=== PATIENT | female | born 1970 | race Caucasian/White ===

== ENCOUNTER → 2023-11-04 10:14 | Outpatient (REF) | payer MEDICARE, SELFPAY | LOC: HWRAD 10:14 | PROVIDERS: ATTENDING PHYSICIAN Family Medicine | DX: R10.9 Unspecified abdominal pain (principal) | CPT/HCPCS: 76700 ==

== ENCOUNTER → 2023-11-29 10:38 | Outpatient (REF) | payer MEDICARE, SELFPAY | LOC: RAD 10:38 | PROVIDERS: ATTENDING PHYSICIAN Nurse Practitioner Acute Care; FAMILY PHYSICIAN Family Medicine | DX: M43.16 Spondylolisthesis, lumbar region (principal) | CPT/HCPCS: 72082 ==

== ENCOUNTER → 2023-12-23 11:11 | Outpatient (REF) | payer MEDICARE, OTHER, SELFPAY | LOC: HWRAD 11:11 | PROVIDERS: ATTENDING PHYSICIAN Neurological Surgery; FAMILY PHYSICIAN Family Medicine | DX: M81.0 Age-related osteoporosis without current pathological fracture (principal) | CPT/HCPCS: 77080 ==

== ENCOUNTER → 2024-01-25 10:34 | Outpatient (REF) | payer MEDICARE, OTHER, SELFPAY | LOC: RAD 10:34 | PROVIDERS: ATTENDING PHYSICIAN Neurological Surgery; FAMILY PHYSICIAN Family Medicine | DX: Z98.1 Arthrodesis status (principal) | CPT/HCPCS: 72100 ==

== ENCOUNTER 2024-02-02 18:12 | Emergency (ER) | payer MEDICARE, OTHER, SELFPAY ==
[2024-02-02 18:18] VITALS: BP 147/91
[2024-02-02 19:57] LABS: % Basophils 0.6 % (0-2); % Eosinophils 1.2 % (0-6); % Immature Granulocytes 0.4 % (0-0.5); % Lymphocytes 14.9 % (20.5-51.1); % Neutrophils 77.9 % (42.2-75.2); Absolute Basophils 0.1 10^3/uL (0-0.2); Absolute Eosinophils 0.1 10^3/uL (0-0.7); Absolute Lymphocytes 1.5 10^3/uL (1.2-3.4); Absolute Monocytes 0.5 10^3/uL (0.1-0.6); Absolute Neutrophils 7.9 10^3/uL (1.4-6.5); Hematocrit 32.1 % (37.0-47.0); Hemoglobin 10.8 g/dL (12.0-16.0); Mean Corp Hgb Conc. 33.6 g/dL (33.0-37.0); Mean Corpuscular Hgb 26.6 pg (27.0-31.0); Mean Corpuscular Volume 79.1 fL (81.0-99.0); Mean Platelet Volume 9.5 fL (7.4-10.4); Nucleated Red Blood Cells % 0 %; Platelet Count 390 10^3/uL (130-400); Red Blood Cell Count 4.06 10^6/uL (4.20-5.40); White Blood Cell Count 10.2 10^3/uL (4.8-10.8)
[2024-02-02 19:58] LABS: Urine Albumin Negative (Neg - Trace); Urine Bilirubin Negative (Negative); Urine Character Clear (Clear); Urine Color Yellow; Urine Glucose Negative (Negative); Urine Ketone Negative (Negative); Urine Leukocyte 2+ (Negative); Urine Nitrite Negative (Negative); Urine Occult Blood Negative (Negative); Urine Urobilinogen Negative (Neg - 1+)
[2024-02-02 20:05] LABS: Urine Squamous Cell >30 /LPF (Few)
[2024-02-02 20:06] LABS: Urine Bacteria Few (Negative); Urine Red Blood Cell 0-2 /HPF (0-2)
--- NOTE | 2024-02-02 20:07 | ED.GENMED ---
History of Present Illness
General
Chief Complaint: Abdominal Symptoms
Source: patient
Exam Limitations: none
Time Seen by Provider: 02/02/24 19:05
Travel History
Have you had any contact with someone who has COVID-19?: No
Do you have any symptoms of coronavirus? Fever > 100 degrees, chills, cough, shortness of breath, sore throat, loss of taste or smell, muscle aches, or headache?: No
History of Present Illness
History of Present Illness:
This is a 53 year old female that comes in with c/o vomiting. States that she had Lumbar surgery 1 month ago. States that she started vomiting at 6am today. State that she did take 2-15mg Oxycodone last night as her pain was bad. States that her
pain has been getting worse. States that it goes down into her legs. States that she see's the surgeon next week but she has called them. States that she was told that it just takes time. States that she has had chills, nausea, vomiting, headache on
and off and dizziness. Denies any fever, chest pain, SOB, abd pain, diarrhea, urinary burning.
Past History
Past History
ED Past Medical History: GERD (Muniz's esophagus), HTN, NIDDM, Psychiatric (Anxiety, Depression), Other (Migraines, Muniz esophagus, Back pain, Hemorrhoids, Gastritis, Iron def anemia, ) and Other (Cervical disc disease, lumbar DJD, chronic back
pain, implanted spinal stimulator, follows with pain management, maintained on opioid medication.)
ED Past Surgical History: Appendectomy, Cholecystectomy and Orthopedic (Cervical laminectomy with fusion, implanted spinal stimulator (Removed), Right knee meniscus repair, Carpal tunnel X 2, Lumbar fusion, )
Social History
Tobacco: Non-smoker
Alcohol: Occasional
Drug: None
Personal: Single
Living: with family (daughter)
Employment: Disabled
Family History
Family History: CAD (Maternal grandfather with OR and 60s)
Review of Systems
Review of Systems
All Other Systems: ROS reviewed and negative except as documented in HPI and ROS
Constitutional: Reports chills; Denies fever
EENT: Reports no symptoms
Respiratory: Reports no symptoms; Denies cough or trouble breathing
Cardiac: Reports no symptoms; Denies chest pain
ABD/GI: Reports nausea and vomiting; Denies abdominal pain or diarrhea
: Reports no symptoms; Denies dysuria, frequency or urgency
Musculoskeletal: Reports back pain (Post surgery)
Skin: Reports no symptoms
Neurological: Reports dizzy and headache (on and off)
Psychiatric: Reports no symptoms
Phy Exam
General Physical Exam
General Presentation: mild distress
General age: appears stated age
General Skin: warm and dry
General Habitus: normal
General Mental: alert
General Hydration: appears well hydrated
ENT Exam
ENT Exam: TM's normal, pharynx normal and neck supple
Eye Exam
Eye Exam: EOMI
Cardiovascular Exam
Cardiovascular Exam: regular rate/rhythm, no edema, no murmur and normal peripheral pulses
Pulmonary Exam
Pulmonary Exam: lungs clear, no respiratory distress, no rales, chest non tender, no crackles, no rhonchi, no wheezing and no cough
Gastrointestinal Exam
Gastrointestinal Exam: normal bowel sounds, non tender, soft, no organomegaly, no pulsatile mass, non distended and other (Rectal tone normal)
Musculoskeletal Exam
Musculoskeletal Exam: full ROM, no edema and other (Push pulls equal and strong)
Skin Exam
Skin Exam: normal color, warm/dry, no rash, no petechia and other (Lumbar incision clean and dry. Negative or any redness )
Psychiatric Exam
Psychiatric Exam: normal mood/affect
Course
Orders/Labs/Results
Orders:
Orders
02/02/24 19:49
Complete Blood Count/With Diff Urgent
Comprehensive Metabolic Panel Urgent
Lipase Urgent
Urinalysis Reflex To Culture Urgent
Date Specimen was Collected: 02/02/24
Time Specimen was Collected: 19:43
Urine Microscopic Reflex Cult Urgent
Urine Culture Urgent
KIRILL Source: U
Specimen Description:
Date Specimen was Collected: 02/02/24
Time Specimen was Collected: 19:43
02/02/24 20:05
0.9% Sodium Chloride 1000 ml [Nss] 1,000 ml IV BOLUS
Ondansetron Injectable [Zofran] 4 mg IV NOW STA
02/02/24 20:09
Ketorolac [Toradol] 30 mg IV NOW STA
02/02/24 20:10
Acetaminophen 1000MG/100Ml [Ofirmev] 1,000 mg in 100 ml IV ONCE
Acetaminophen IV Indication:: ED Narcotic Naive Pt-ONCE
02/02/24 20:11
Pantoprazole [Protonix IV] 40 mg IV NOW STA
Abnormal Lab Results
02/02/24
19:49
RBC 4.06 L 10^6/uL
(4.20-5.40)
Hgb 10.8 L g/dL
(12.0-16.0)
Hct 32.1 L %
(37.0-47.0)
MCV 79.1 L fL
(81.0-99.0)
MCH 26.6 L pg
(27.0-31.0)
Absolute Neuts (auto) 7.9 H 10^3/uL
(1.4-6.5)
Neutrophils % 77.9 H %
(42.2-75.2)
Lymphocytes % 14.9 L %
(20.5-51.1)
Carbon Dioxide 21 L mmol/L
(22-30)
Glucose 124 H mg/dl
(70-99)
Calcium 10.7 H mg/dl
(8.4-10.2)
Leukocyte Esterase Rfl 2+ A
(Negative)
Urine Bacteria (Reflex) Few A
(Negative)
02/02/24 19:49
02/02/24 19:49
H/H slightly low. Anemia,
Vital Signs
Initial and Last Documented VS:
Initial Vital Signs
Temp Pulse Resp BP Pulse Ox
98.9 F 96 18 147/91 99
02/02/24 18:18 02/02/24 18:18 02/02/24 18:18 02/02/24 18:18 02/02/24 18:18
Last Documented Vital Signs
Temp Pulse Resp BP Pulse Ox
98.9 F 96 18 147/91 99
02/02/24 18:18 02/02/24 18:18 02/02/24 18:18 02/02/24 18:18 02/02/24 18:18
MDM/Problems Addressed
Differential Diagnosis Includes:
Post surgical back pain.
MDM/Problems Addressed:
This is a 53 year old female that comes in with c/o vomiting. States that she has back surgery a month ago and today at 6am she started with vomiting. States that she feels her back pain is getting worse and her legs hurt.
Will get labs, give IV fluids and pain medication with antiemetics.
Back into see patient. States that she is feeling better and is ready to go home. Will give patient a prescription for Zofran. Encouraged patient to try using Tylenol 1000mg every 6 hours and alternating this with Ibuprofen 600mg every 6 hours with
food. Patient can also use her Oxycodone for pain. Follow up with the Surgeon. Return with any concerns.
Chronic conditions affecting care:
Back surgery
Acute Exacerbation and/or Progression of Chronic Illness:
Back surgery
*Pulse Oximetry
Patient hypoxic: no
*EKG
Interpreted by ED Provider?: NA
Rate: EKG- N/A
*Tile Roofer Interpretation
Rate: Tile Roofer- N/A
*Critical Care Note
Total Time (30-74mins, 75-104mins- exclusive of procedures): Not Applicable
ED Attending Note
-
Portions of this chart may have been created with voice recognition software.� Occasional wrong word or��sound alike� substitutions may have occurred due to the inherent limitations of voice recognition software.
Discharge Plan
Departure
Patient Disposition: Home (Routine Discharge)
Date of Disposition: 02/02/24
Time of Disposition: 22:24
Patient with high blood pressure during this ER visit?: Yes
Condition: Good
Covid-19: Not Applicable
Discharge Problem:
Nausea & vomiting
Instructions: Nausea and Vomiting, Adult (DC), BLOOD PRESSURE
Prescriptions:
New
ondansetron 4 mg tablet,disintegrating
4 mg PO Q8H PRN (Reason: nausea and vomiting) Qty: 7 0RF
No Action
metformin 500 MG tablet
1,000 mg PO BID
fenofibrate [Fenoglide] 40 MG tablet
40 mg PO DAILY
Patient Comments:
check dose with patient.
amoxicillin-pot clavulanate 875-125 mg tablet
1 tab PO BID Qty: 14 0RF
oxycodone 15 mg Tablet, Oral Only
15 mg PO Q6H PRN (Reason: pain)
Referrals:
Jayla Menendez PA [Family Provider] -
Activity Restrictions/Additional Instructions:
As discussed, your blood work shows your chronic anemia. Your Urine is negative for infection. You have had a prescription for Zofran sent to your Pharmacy. This will help with any nausea, vomiting. You may use Tylenol 1000mg every 6 hours for pain
and Ibuprofen 600mg every 6 hours with food and alternate them. So if you take Tylenol at 9am the Ibuprofen would be due at 12 noon and then Tylenol at 3pm and Ibuprofen at 6pm. You may also use your Oxycodone as needed for pain. Please call the
surgeon tomorrow for further evaluation. IF YOU HAVE ANY FEVER, UNABLE TO KEEP ANY FOOD OR WATER DOWN OR YOU HAVE ANY OTHER CONCERNS PLEASE RETURN TO THE EMERGENCY ROOM.
Interventions
Interventions:
*Risk Screen - Suicide Last Done: 02/02/24 18:18
*General Assessment Last Done: 02/02/24 18:18
*Neglect/Abuse Screening Last Done: 02/02/24 18:18
ED- Fall Risk Assessment Last Done: 02/02/24 21:05
*ED COVID-19 Vaccine History Last Done: 02/02/24 21:05
NO-Yqxsls-Jdmyycdfuy Assessment Last Done: 02/02/24 19:45
Discharge Date and Time
Print Language: KOREAN
[2024-02-02 20:13] LABS: ALT (SGPT) 21 U/L (0-35); AST (SGOT) 27 U/L (14-36); Albumin 4.8 g/dl (3.5-5.0); Alkaline Phosphatase 57 U/L (38-126); Blood Urea Nitrogen 15 mg/dl (7-17); Calcium 10.7 mg/dl (8.4-10.2); Carbon Dioxide 21 mmol/L (22-30); Chloride 102 mmol/L (98-107); Glucose 124 mg/dl (70-99); Lipase 88 U/L (23-300); Sodium 137 mmol/L (135-145); Total Bilirubin 0.8 mg/dl (0.2-1.3); Total Protein 7.5 g/dl (6.3-8.2); eGFR > 60.00
[2024-02-02] MEDS: ZOFRAN 4 MG IV (20:15)
[2024-02-02] MEDS: NSS 1000 IV (20:15)
[2024-02-02] MEDS: PROTONIX IV 40 MG IV (20:16)
[2024-02-02] MEDS: TORADOL 30 MG IV (20:16)
[2024-02-02 22:37] VITALS: BP 136/73
== END 2024-02-02 22:38 | disposition home or self-care (01) ==
LOC: EMR 18:12
PROVIDERS: Clinical Nurse Specialist Family Health; EMERGENCY PHYSICIAN Emergency Medicine; FAMILY PHYSICIAN Family Medicine
DX: R11.2 Nausea with vomiting, unspecified (principal); R42 Dizziness and giddiness; R51.9 Headache, unspecified; R68.83 Chills (without fever); I10 Essential (primary) hypertension; E11.9 Type 2 diabetes mellitus without complications; K21.9 Gastro-esophageal reflux disease without esophagitis; K22.70 Barrett's esophagus without dysplasia; F32.A Depression, unspecified; F41.9 Anxiety disorder, unspecified; M54.9 Dorsalgia, unspecified; D50.9 Iron deficiency anemia, unspecified; M50.90 Cervical disc disorder, unspecified, unspecified cervical region; M47.816 Spondylosis without myelopathy or radiculopathy, lumbar region; G89.29 Other chronic pain; Z98.890 Other specified postprocedural states; Z90.49 Acquired absence of other specified parts of digestive tract; Z98.1 Arthrodesis status; Z79.891 Long term (current) use of opiate analgesic; Z79.84 Long term (current) use of oral hypoglycemic drugs; Z88.5 Allergy status to narcotic agent; Z88.8 Allergy status to other drugs, medicaments and biological substances; Z91.040 Latex allergy status
CPT/HCPCS: 99284; 96374; 96375 ×2; 96361; 80053; 81003; 81015; 83690; 85025; 87086

== ENCOUNTER 2025-04-04 03:59 | Emergency (ER) | payer OTHER, SELFPAY ==
[2025-04-04 04:02] VITALS: BP 129/77
--- NOTE | 2025-04-04 04:09 | ED.GENMED ---
History of Present Illness
General
Chief Complaint: Back Pain
Source: patient
Exam Limitations: none
Time Seen by Provider: 04/04/25 04:08
Nursing documentation reviewed up to this point in time: agreed with
History of Present Illness
History of Present Illness:
This is a 55-year-old female with a past medical history of GERD Bryan's esophagus, chronic neck and back pain status post spinal fusion, chronic gastritis, hypertension, anxiety, depression, who presents to the emergency department today with
concerns of left shoulder pain and back pain as well as chest discomfort and upper abdominal discomfort x 3 days. The chest discomfort comes and goes and is accompanied by epigastric pain. She has bryan's esophagus and it feels similar to reflux
symptoms. Patient is concerned because her chronic back pain is starting to radiate to the left shoulder 3 days ago and she read online that that could indicate a heart attack. She has no known hx of CAD. She has a family hx of coronary disease and
as such she follows up with a inspector [employer] every 2 years. She previously underwent cardiac catheterization which was unremarkable. She has known history of degenerative disc disease and has had multiple spinal surgeries and follows with a pain
configuration management administrator. She takes daily oxycodone extended release and shorter acting oxycodone as needed. She denies any injury to the shoulder, denies any recent falls, no nausea or vomiting, no fevers or chills, recent long distance travel,
swelling or pain in her lower extremities, palpitations, dark tarry stools, rectal bleeding.
Past History
Past History
ED Past Medical History: GERD (Bryan's esophagus), HTN, NIDDM, Psychiatric (Anxiety, Depression), Other (Migraines, Bryan esophagus, Back pain, Hemorrhoids, Gastritis, Iron def anemia, ) and Other (Cervical disc disease, lumbar DJD, chronic back
pain, implanted spinal stimulator, follows with pain management, maintained on opioid medication.)
ED Past Surgical History: Appendectomy, Cholecystectomy and Orthopedic (Cervical laminectomy with fusion, implanted spinal stimulator (Removed), Right knee meniscus repair, Carpal tunnel X 2, Lumbar fusion, )
Social History
Tobacco: Non-smoker
Alcohol: Occasional
Drug: None
Personal: Single
Living: with family (daughter)
Employment: Disabled
Family History
Family History: CAD (Maternal grandfather with NE and 60s)
Review of Systems
Review of Systems
All Other Systems: ROS reviewed and negative except as documented in HPI and ROS
Phy Exam
Physical Exam
Physical Exam:
General: Patient is well appearing and in no acute distress; non-toxic
Skin: Warm and dry, no rashes or lesions
Head: Normocephalic, atraumatic
Eyes: Sclera non-icteric. EOMs intact.
Cardiac: Regular rate and rhythm, no murmurs
Peripheral Vascular: No lower extremity swelling or edema; 2+ radial pulses bilaterally
Pulm: Normal respiratory effort, no wheezes, rales, or rhonchi
Abdomen: Mild epigastric abdominal tenderness to palpation
Musculoskeletal: Pain with external rotation and abduction of the right shoulder with tenderness to palpation over the left shoulder blade
Neuro: CN II-XII intact, no focal neurologic deficits.
Psychiatric: Appropriate mood and affect.
Scores
PE Wells Score
Symptoms of DVT: No
No alternative diagnosis better explains the illness: No
Tachycardia with pulse > 100: No
Immobilization (>=3 days) or surgery within previous 4 weeks: No
Prior history of DVT or pulmonary embolism: No
Presence of hemoptysis: No
Presence of malignancy: No
Pulmonary Embolism Risk Score: 0
Probability of PE: Pt is low risk
Course
Orders/Labs/Results
Orders:
Orders
04/04/25 04:22
0.9% Sodium Chloride 500 ml [Nss] 500 ml IV BOLUS
Mag Hydrox/Al Hydrox/Simeth [Maalox] 30 ml Phenobarb/Hyoscy/Atropine/Scop [] 10 ml Viscous Lidocaine 2% [Xylocaine Viscous Cup] 10 ml PO NOW
Ondansetron Injectable [Zofran] 4 mg IV NOW STA
04/04/25 04:23
CR Chest - 2 Views Urgent
Comment:
Reason For Exam: chest pain, left shoulder pain
04/04/25 04:24
Morphine Sulfate 2 mg IV NOW STA
04/04/25 04:34
Complete Blood Count/With Diff Urgent
Comprehensive Metabolic Panel Urgent
Lipase Urgent
Troponin I Urgent
04/04/25 04:36
Mag Hydrox/Al Hydrox/Simeth [Maalox] 30 ml .ROUTE .STK-MED ONE
Phenobarb/Hyoscy/Atropine/Scop [] 10 ml .ROUTE .STK-MED ONE
Viscous Lidocaine 2% [Xylocaine Viscous Cup] 15 ml .ROUTE .STK-MED ONE
04/04/25 05:03
Electrocardiogram (*1) Urgent
Reason for Study: Chest Pain
04/04/25 05:28
Vital Signs- Treatment ONCE
Frequency: Once
Baclofen [Lioresal] 10 mg PO NOW STA
Ketorolac [Toradol] 15 mg IV NOW STA
Lidocaine [Lidocaine 4% Patch] 1 patch TOPICAL DAILY ONE
Apply Lidocaine patch(s) to:: left shoulder blade
Abnormal Lab Results
04/04/25
04:34
Hgb 11.7 L g/dL
(12.0-16.0)
Hct 34.7 L %
(37.0-47.0)
Plt Count 404 H 10^3/uL
(130-400)
Abs Immat Gran (auto) 0.1 H 10^3/uL
(0-0.05)
Immature Gran % 0.8 H %
(0-0.5)
Glucose 158 H mg/dl
(70-99)
Calcium 10.6 H mg/dl
(8.4-10.2)
AST 40 H U/L
(14-36)
ALT 41 H U/L
(0-35)
04/04/25 04:34
04/04/25 04:34
Vital Signs
Initial and Last Documented VS:
Initial Vital Signs
Temp Pulse Resp BP Pulse Ox
98.3 F 81 18 129/77 100
04/04/25 04:02 04/04/25 04:02 04/04/25 04:02 04/04/25 04:02 04/04/25 04:02
Last Documented Vital Signs
Temp Pulse Resp BP Pulse Ox
98.3 F 76 20 125/69 97
04/04/25 04:02 04/04/25 06:00 04/04/25 06:00 04/04/25 05:44 04/04/25 06:00
MDM/Problems Addressed
Differential Diagnosis Includes:
ddx include musculoskeletal sprain/strain, chronic back pain/DJD, ACS, gastritis/GERD
MDM/Problems Addressed:
55 y/o female with a pmh of chronic back pain on chronic narcotics, Bryan's esophagus, presents to the ER today with concerns of 3 days of atypical chest pain and abdominal discomfort. She has also had an exacerbation of her chronic back pain and
notes that she is now feeling it over her left shoulder blade.
On exam, her shoulder pain is illicited with external rotation and palpation.
Patient is in chronic pain and states that she still has moderate pain but the dose of morphine, toradol, lidocaine patch, made the pain tolerable.
She is searching for a new pain management doctor and is looking for a doctor who can insert an intrathecal pain pump.
Patient had recent myocardial perfusion study on 10/07/24 due to atypical chest pain which showed:
Normal myocardial perfusion imaging.
Stress Risk is low risk study, but the patient may be at moderate risk (risk of 1 - 3% NE or /year) due to pharmacologic agent used.
Systolic function is normal. The ejection fraction is greater than 75%
Thoracic spine CT 05/13/22: disc herniation and degenerative disc disease
Today, her ecg shows normal sinus rhythm with no ischemic changes. Her troponin is undetectable. CXR unremarkable. Her chest and epigastric discomfort completely resolved with GI cocktail, suspect GERD exacerbation. Will place on PPI trial. She
states that she currently does not follow up with a GI doctor. New referral provided. Advised follow up with GI and cards, pcp. Suspect her shoulder pain today is musculoskeletal as she is tender to palpation and it is brought on with movement.
Patient requested lidocaine patches to go home with. Patient requesting morphine prescription because she states that her oxycodone have not been working well recently. Discussed that patient will need to follow up with pain management, no new
narcotic script given. Patient expressed understanding. Patient stable for discharge.
*Pulse Oximetry
SaO2: 100
Oxygen Mode of Delivery: Room air
Patient hypoxic: no
*Critical Care Note
Total Time (30-74mins, 75-104mins- exclusive of procedures): Not Applicable
Update Note
Update Note:
5: 31 am--Patient notes complete resolution of her upper abdominal pain and chest pain after GI cocktail. Suspect GERD/gastritis. Patient reports that her left shoulder blade pain persist and back pain. CXR unremarkable no evidence of widened
mediastinum. She reports that the morphine did not help. Patient is on chronic opioid medication has a higher pain tolerance. Will trial dose of Toradol, lidocaine patch and baclofen and reassess.
6:17 AM�patient is able to ambulate to the bathroom without acute discomfort. She reports that the combination of medications have taken the edge off her pain. Patient is requesting a prescription for lidocaine patches.
6:34 AM-- Patient ready for discharge. Patient did receive a 2 mg dose of morphine at 4:25 am typically will keep patients for 4 hours after dose however patient states that she is ready to go home. I think this is reasonable as patient is a chronic
narcotic user and takes multiple doses of short acting oxycodone and long acting oxycodone everyday for multiple years and follows with pain management and currently patient is awake and alert, oriented and I do feel she is stable for drive home to
[place]. She denies dizziness, sleepiness, drowsiness.
ED Attending Note
-
Portions of this chart may have been created with voice recognition software.� Occasional wrong word or��sound alike� substitutions may have occurred due to the inherent limitations of voice recognition software.
Discharge Plan
Departure
Patient Disposition: Home (Routine Discharge)
Date of Disposition: 04/04/25
Time of Disposition: 06:34
Patient with high blood pressure during this ER visit?: No
Condition: Good
Discharge Problem:
GERD (gastroesophageal reflux disease), Chronic mid back pain
Instructions: Upper Back Pain (DC), Acid reflux and GERD in adults, BLOOD PRESSURE
Prescriptions:
New
lidocaine 5 % adhesive patch,medicated
1 patch topical DAILY Qty: 30 0RF
No Action
metformin 500 MG tablet
500 mg PO BID
losartan 50 mg Tablet
50 mg PO DAILY
dicyclomine 20 mg Tablet
20 mg PO BID
pregabalin 150 mg Capsule
150 mg PO TID
Xtampza ER 9 mg Cap,Sprinkl,Er12hr(Dont Crush)
9 mg PO Q12H
fenofibrate
145 mg PO DAILY
Referrals:
Rufina Martinez MD [Non-Admitting Privileges, Anesthesiology] - Call in 1-3 days for appt
Cindy Darden MD [Active, Gastroenterology] - Call in 1-3 days for appt
Jayla Menendez PA [Family Provider, Family Practice]
Activity Restrictions/Additional Instructions:
You can merchandise pickup/receiving associate Maalox [id number] to help with your acute GERD symptoms as needed.
Pantoprazole been sent to your pharmacy. Please take 1 tablet once daily for a 2-week trial.
Lidocaine patches have been sent to your pharmacy. You can apply 1 patch or the effected area once daily. Please remove after 12 hours.

[facility]
[phone]
Dr. Martinez
[facility], [facility]

Your blood work is unremarkable. Please follow-up with your primary care provider. Please call the attached number to schedule appointment to see gastroenterology.
PLEASE RETURN EMERGENCY DEPARTMENT SHOULD YOU DEVELOP CHEST PAIN, SHORTNESS OF BREATH, VOMITING BLOOD, RECTAL BLEEDING, DARK TARRY STOOLS, INTRACTABLE NAUSEA OR VOMITING, FAINTING SPELLS, PALPITATIONS, LIGHTHEADEDNESS, DIZZINESS, OR ANY OTHER SIGNS
OR SYMPTOMS WORRISOME TO YOU.
Interventions
Interventions:
*Risk Screen - Suicide Last Done: 04/04/25 04:02
*General Assessment Last Done: 04/04/25 04:02
*Neglect/Abuse Screening Last Done: 04/04/25 04:02
*ED- Fall Risk Assessment Last Done: 04/04/25 06:09
*ED COVID-19 Vaccine History Last Done: 04/04/25 06:09
*Nursing Disposition Last Done: 04/04/25 06:30
ED-Musculoskeletal Assessment Last Done: 04/04/25 04:35
Discharge Date and Time
Discharge Date/Time: 04/04/25 06:30
Print Language: FRENCH
[2025-04-04 04:24] VITALS: BMI 35.7
[2025-04-04] MEDS: ZOFRAN 4 MG IV (04:38)
[2025-04-04] MEDS: MORPHINE SULFATE 2 MG IV (04:38)
[2025-04-04] MEDS: MAALOX 50 PO (04:38)
[2025-04-04] MEDS: NSS 500 IV (04:39)
[2025-04-04 04:49] LABS: Hematocrit 34.7 % (37.0-47.0); Hemoglobin 11.7 g/dL (12.0-16.0); Mean Corp Hgb Conc. 33.7 g/dL (33.0-37.0); Mean Corpuscular Volume 82.6 fL (81.0-99.0); Nucleated Red Blood Cells % 0 %; Platelet Count 404 10^3/uL (130-400); Red Cell Dist. Width 13.2 % (11.5-14.5)
[2025-04-04 05:15] LABS: ALT (SGPT) 41 U/L (0-35); AST (SGOT) 40 U/L (14-36); Albumin 4.8 g/dl (3.5-5.0); Alkaline Phosphatase 39 U/L (38-126); Blood Urea Nitrogen 13 mg/dl (7-17); Calcium 10.6 mg/dl (8.4-10.2); Carbon Dioxide 24 mmol/L (22-30); Chloride 105 mmol/L (98-107); Estimated Creatinine Clearance 92 ml/min; Glucose 158 mg/dl (70-99); Lipase 49 U/L (23-300); Potassium 4.4 mmol/L (3.5-5.1); Sodium 137 mmol/L (135-145); Total Protein 7.6 g/dl (6.3-8.2); eGFR > 60.00
[2025-04-04 05:27] LABS: Troponin I < 0.012 ng/ml
[2025-04-04 05:44] VITALS: BP 125/69
[2025-04-04] MEDS: LIDOCAINE 4% PATCH 1 PATCH TOPICAL (05:44)
[2025-04-04] MEDS: LIORESAL 10 MG PO (05:46)
[2025-04-04] MEDS: TORADOL 15 MG IV (05:46)
== END 2025-04-04 06:30 | disposition home or self-care (01) ==
LOC: EMR 03:59
PROVIDERS: Physician Assistant; EMERGENCY PHYSICIAN Emergency Medicine; FAMILY PHYSICIAN Family Medicine
DX: K21.9 Gastro-esophageal reflux disease without esophagitis (principal); M54.6 Pain in thoracic spine; M54.2 Cervicalgia; M25.512 Pain in left shoulder; R07.89 Other chest pain; I10 Essential (primary) hypertension; M51.35 Other intervertebral disc degeneration, thoracolumbar region; G43.909 Migraine, unspecified, not intractable, without status migrainosus; K22.70 Barrett's esophagus without dysplasia; E11.9 Type 2 diabetes mellitus without complications; M50.90 Cervical disc disorder, unspecified, unspecified cervical region; M47.816 Spondylosis without myelopathy or radiculopathy, lumbar region; F41.9 Anxiety disorder, unspecified; F32.A Depression, unspecified; D50.9 Iron deficiency anemia, unspecified; G89.29 Other chronic pain; Z79.891 Long term (current) use of opiate analgesic; Z82.49 Family history of ischemic heart disease and other diseases of the circulatory system; Z90.49 Acquired absence of other specified parts of digestive tract; Z98.1 Arthrodesis status; Z88.5 Allergy status to narcotic agent; Z88.8 Allergy status to other drugs, medicaments and biological substances; Z91.040 Latex allergy status
CPT/HCPCS: 99284; 96374; 96375 ×2; 96361 ×2; 71046; 80053; 83690; 84484; 85025; 93005

== ENCOUNTER 2025-07-19 10:36 | Outpatient (RCR) | payer OTHER, SELFPAY | END 2025-07-19 23:59 | disposition home or self-care (01) | LOC: RPT 10:36 | DX: M54.16 Radiculopathy, lumbar region (principal); M96.1 Postlaminectomy syndrome, not elsewhere classified; Z73.6 Limitation of activities due to disability; M43.22 Fusion of spine, cervical region; Z98.1 Arthrodesis status; R29.6 Repeated falls | CPT/HCPCS: 97112; 97163 ==

== ENCOUNTER 2025-09-09 12:54 | Emergency (ER) | payer OTHER, SELFPAY ==
[2025-09-09] VITALS (7 sets, daily range): BP systolic 116–161; BP diastolic 55–86; BMI 33.5
[2025-09-09 14:27] LABS: COVID-19 Antigen Negative (Negative)
--- NOTE | 2025-09-09 16:25 | ED.GENMED ---
History of Present Illness
General
Chief Complaint: Abdominal Symptoms
Source: patient
Exam Limitations: none
Time Seen by Provider: 09/09/25 16:24
Nursing documentation reviewed up to this point in time: agreed with
History of Present Illness
History of Present Illness:
Patient to the emergency department with complaint of nausea and vomiting which started this morning. States she has had a cough for the last 3 days. She denies any fever or chills. Brought self to the emergency department for evaluation. She is
currently treating for chronic pain. Takes oxycodone for her pain. She states that her dose is being weaned in preparation for pain pump. Unable to take her pain medication today due to the nausea and vomiting.
Past History
Past History
ED Past Medical History: GERD (Muniz's esophagus), HTN, NIDDM, Psychiatric (Anxiety, Depression), Other (Migraines, Muniz esophagus, Back pain, Hemorrhoids, Gastritis, Iron def anemia, ) and Other (Cervical disc disease, lumbar DJD, chronic back
pain, implanted spinal stimulator, follows with pain management, maintained on opioid medication.)
ED Past Surgical History: Appendectomy, Cholecystectomy and Orthopedic (Cervical laminectomy with fusion, implanted spinal stimulator (Removed), Right knee meniscus repair, Carpal tunnel X 2, Lumbar fusion, )
Social History
Tobacco: Non-smoker
Alcohol: Occasional
Drug: None
Personal: Single
Living: with family (daughter)
Employment: Disabled
Family History
Family History: CAD (Maternal grandfather with LA and 60s)
Review of Systems
Review of Systems
Allergies reviewed?: Yes
All Other Systems: ROS reviewed and negative except as documented in HPI and ROS
Constitutional: Reports no symptoms
EENT: Reports no symptoms
Respiratory: Reports cough
Cardiac: Reports no symptoms
ABD/GI: Reports nausea and vomiting
: Reports no symptoms
Musculoskeletal: Reports no symptoms
Skin: Reports no symptoms
Neurological: Reports weakness
Psychiatric: Reports no symptoms
Phy Exam
General Physical Exam
General Presentation: moderate distress
General age: appears stated age
General Skin: warm and dry
General Habitus: normal
General Mental: alert
Cardiovascular Exam
Cardiovascular Exam: regular rate/rhythm and no edema
Pulmonary Exam
Pulmonary Exam: lungs clear and no respiratory distress
Gastrointestinal Exam
Gastrointestinal Exam: normal bowel sounds, soft, no organomegaly, no pulsatile mass and non distended
Palpation: generalized: Moderate tenderness
Musculoskeletal Exam
Musculoskeletal Exam: full ROM and neuro vasc intact
Skin Exam
Skin Exam: normal color, warm/dry and no rash
Psychiatric Exam
Psychiatric Exam: normal mood/affect
Sepsis
Sepsis Screening
Sepsis Assessment: Sepsis Ruled Out
Sepsis Screen
Sepsis Screen: Sepsis Ruled Out
Date: 09/12/25
Time: 18:23
Course
Orders/Labs/Results
Orders:
Orders
09/09/25 13:09
Electrocardiogram (*1) Urgent
Reason for Study: Other
Other Reason for Exam: Possible Sepsis
EKG- Treatment ONCE
09/09/25 13:31
COVID-19 Antigen Urgent
Source: Nasal Swab
Blood Culture Q20M
[facility] Source: Blood/Venous
Specimen Description:
Comment: Urgent from separate sites. If patient screens positive for possible sepsis
Influenza A+B Rapid Molecular Urgent
[facility] Source: Nasal Swab
Specimen Description:
09/09/25 16:31
CR Chest - 2 Views Urgent
Comment:
Reason For Exam: fever, cough
09/09/25 16:54
Complete Blood Count/With Diff Urgent
Comprehensive Metabolic Panel Urgent
Lactic Acid Q4H
Comment: ON ICE, CANCEL 2ND ORDER IF FIRST LACTIC ACID LEVEL <2
Lipase Urgent
Comment: ADD ON
Blood Culture Q20M
[facility] Source: Blood/Venous
Specimen Description:
Comment: Urgent from separate sites. If patient screens positive for possible sepsis
09/09/25 16:57
0.9% Sodium Chloride 1000 ml [Nss] 1,000 ml IV BOLUS
09/09/25 16:58
Acetaminophen [Tylenol] 1,000 mg .ROUTE .STK-MED ONE
09/09/25 16:59
Acetaminophen [Tylenol] 1,000 mg PO NOW STA
09/09/25 18:43
Add On- LAB Urgent
Tests Added?: lipase
CT Abd/pelvis W Iv Cont Urgent
Comment:
Reason For Exam: diffuse pain, vomiting
Ketorolac [Toradol] 30 mg IV NOW STA
Ondansetron Injectable [Zofran] 4 mg IV NOW STA
09/09/25 20:56
Amoxicillin 875 mg/Clav 125 mg [Augmentin 875 mg/125 mg] 1 tablet PO NOW STA
Doxycycline [Vibramycin] 100 mg PO NOW STA
Abnormal Lab Results
09/09/25
16:54
Hgb 11.8 L g/dL
(12.0-16.0)
Hct 34.7 L %
(37.0-47.0)
MCV 78.5 L fL
(81.0-99.0)
MCH 26.7 L pg
(27.0-31.0)
Abs Immat Gran (auto) 0.1 H 10^3/uL
(0-0.05)
Absolute Neuts (auto) 8.4 H 10^3/uL
(1.4-6.5)
Absolute Lymphs (auto) 1.0 L 10^3/uL
(1.2-3.4)
Neutrophils % 83.5 H %
(42.2-75.2)
Lymphocytes % 10.2 L %
(20.5-51.1)
Sodium 134 L mmol/L
(135-145)
Carbon Dioxide 19 L mmol/L
(22-30)
Glucose 147 H mg/dl
(70-99)
09/09/25 16:54
09/09/25 16:54
Vital Signs
Initial and Last Documented VS:
Initial Vital Signs
Temp Pulse Resp BP Pulse Ox
102 F H 121 22 161/86 98
09/09/25 13:04 09/09/25 13:04 09/09/25 13:04 09/09/25 13:04 09/09/25 13:04
Last Documented Vital Signs
Temp Pulse Resp BP Pulse Ox
100.1 F 121 22 124/68 98
09/09/25 16:56 09/09/25 13:04 09/09/25 13:04 09/09/25 21:08 09/09/25 23:05
*Radiology
Radiology exam reviewed: radiology read reviewed
*Pulse Oximetry
SaO2: 98
Oxygen Mode of Delivery: Room air
Patient hypoxic: no
*Critical Care Note
Total Time (30-74mins, 75-104mins- exclusive of procedures): Not Applicable
Update Note
Update Note:
Patient to the emergency department for complaint of cough, nausea or vomiting. Cough started approximate 3 days ago nausea and vomiting started this morning. She denies any fever or chills. She denies any shortness of breath or chest pain. Temp
102.0 on arrival to the ED she was given 1 g of Tylenol p.o. Temp decreased to 100.1. Labs reviewed. CBC and CMP are stable. Chest x-ray NAD. CT of abdomen pelvis was completed. No acute finding in the abdomen or pelvis however left lower lobe
bronchopneumonia was identified. Discussed this finding with her. Will place on a course of Augmentin and doxycycline, first dose is given in ED. Pulse ox remains 98% on room air, no respiratory distress noted. She will be discharged home, close
follow-up with PCP. She was given instructions on signs and symptoms to return to the emergency department and she is agreeable to this plan.
ED Attending Note
-
Portions of this chart may have been created with voice recognition software.� Occasional wrong word or��sound alike� substitutions may have occurred due to the inherent limitations of voice recognition software.
Discharge Plan
Departure
Patient Disposition: Home (Routine Discharge)
Date of Disposition: 09/09/25
Time of Disposition: 20:57
Patient with high blood pressure during this ER visit?: No
Condition: Good
Covid-19: Not Applicable
Discharge Problem:
Pneumonia
Instructions: Nausea and Vomiting, Adult (DC), Pneumonia
Prescriptions:
New
amoxicillin-pot clavulanate 875-125 mg tablet
1 tab PO BID Qty: 20 0RF
doxycycline hyclate 100 mg capsule
100 mg PO BID Qty: 20 0RF
No Action
metformin 500 MG tablet
500 mg PO BID
lidocaine 5 % adhesive patch,medicated
1 patch topical DAILY Qty: 30 0RF
losartan 50 mg Tablet
50 mg PO DAILY
dicyclomine 20 mg Tablet
20 mg PO BID
pregabalin 150 mg Capsule
150 mg PO TID
Xtampza ER 9 mg Cap,Sprinkl,Er12hr(Dont Crush)
9 mg PO Q12H
fenofibrate
145 mg PO DAILY
pantoprazole 20 mg tablet,delayed release (DR/EC)
20 mg PO DAILY Qty: 14 0RF
Referrals:
Jayla Menendez PA [Family Provider, Family Practice] - Follow up in 2-3 days
Activity Restrictions/Additional Instructions:
Return to the emergency department for any changes in/worsening of your symptoms.
Interventions
Interventions:
*General Assessment Last Done: 09/09/25 13:04
*Neglect/Abuse Screening Last Done: 09/09/25 13:04
*ED COVID-19 Vaccine History Last Done: 09/09/25 16:33
*ED Influenza Vaccine History Last Done: 09/09/25 16:33
[facility] Fall Risk Assessment Tool Last Done: 09/09/25 16:32
*Risk Screen - Suicide (C-SSRS) Last Done: 09/09/25 13:04
*Nursing Disposition Last Done: 09/09/25 21:42
HV-Edtoyy-Hvylvkjthi Assessment Last Done: 09/09/25 16:36
Discharge Date and Time
Discharge Date/Time: 09/09/25 21:53
Print Language: MAURITANIAN
[2025-09-09] MEDS: NSS 1000 IV (16:57)
[2025-09-09] MEDS: TYLENOL 1000 MG PO (16:59)
[2025-09-09 17:04] LABS: Hematocrit 34.7 % (37.0-47.0); Hemoglobin 11.8 g/dL (12.0-16.0); Mean Corp Hgb Conc. 34.0 g/dL (33.0-37.0); Mean Corpuscular Volume 78.5 fL (81.0-99.0); Nucleated Red Blood Cells % 0 %; Platelet Count 390 10^3/uL (130-400); Red Cell Dist. Width 13.7 % (11.5-14.5)
[2025-09-09 17:23] LABS: ALT (SGPT) 24 U/L (0-35); AST (SGOT) 26 U/L (14-36); Albumin 4.7 g/dl (3.5-5.0); Alkaline Phosphatase 39 U/L (38-126); Blood Urea Nitrogen 9 mg/dl (7-17); Calcium 9.6 mg/dl (8.4-10.2); Carbon Dioxide 19 mmol/L (22-30); Chloride 101 mmol/L (98-107); Estimated Creatinine Clearance 102 ml/min; Glucose 147 mg/dl (70-99); Potassium 4.0 mmol/L (3.5-5.1); Sodium 134 mmol/L (135-145); Total Protein 7.5 g/dl (6.3-8.2); eGFR > 60.00
[2025-09-09 19:14] LABS: Lipase 43 U/L (23-300)
[2025-09-09] MEDS: ZOFRAN 4 MG IV (19:39)
[2025-09-09] MEDS: TORADOL 30 MG IV (19:39)
[2025-09-09] MEDS: VIBRAMYCIN 100 MG PO (21:14)
[2025-09-09] MEDS: AUGMENTIN 875 MG/125 MG 1 TABLET PO (21:14)
== END 2025-09-09 21:53 | disposition home or self-care (01) ==
LOC: EMR 12:54
PROVIDERS: Emergency Medicine; EMERGENCY PHYSICIAN Emergency Medicine; FAMILY PHYSICIAN Family Medicine
DX: J18.9 Pneumonia, unspecified organism (principal); R11.2 Nausea with vomiting, unspecified; E11.9 Type 2 diabetes mellitus without complications; G89.29 Other chronic pain; I10 Essential (primary) hypertension; Z87.19 Personal history of other diseases of the digestive system; Z90.49 Acquired absence of other specified parts of digestive tract; Z11.52 Encounter for screening for COVID-19
CPT/HCPCS: 99285; 96374; 96375; 96361; 71046; 74177; 80053; 83605; 83690; 85025; 87040; 87502; 87811; 93005; Q9967